=== PATIENT | female | born 1960 | race Caucasian/White ===

== ENCOUNTER → 2023-07-31 | Outpatient (CLI) | payer BC ==
[2023-07-31 10:57] LABS: African American GFR (CKD) >90 (>60 ml/min/1.73 sqM); Blood Urea Nitrogen 9 mg/dL (7-17); Non-African American GFR(CKD) >90 (>60 ml/min/1.73 sqM)
--- NOTE | 2023-07-31 14:30 | CT ---
EXAMINATION TYPE: CT abdomen pelvis w con DATE OF EXAM: 07/31/2023 COMPARISON: None HISTORY: incisional hernia. generalized abd pain. CT DLP: 1943.7 mGycm Automated exposure control for dose reduction was used. TECHNIQUE: Helical acquisition of images was performed from the lung bases through the pelvis. CONTRAST: Performed with Oral Contrast and with IV Contrast, patient injected with 100ml mL of Isovue 300. FINDINGS: The lung bases are clear. There is surgical absence of the gallbladder. There is no biliary ductal dilatation. There is no focal mass or organomegaly involving the liver, pancreas, spleen or adrenal glands. There is no solid renal mass or hydronephrosis and there is homogeneous contrast enhancement of the r enal parenchyma. The caliber the abdominal aorta is normal is no retroperitoneal adenopathy or hemorr [place]. The bowel loops are normal in caliber and there is no evidence of dilatation or obstruction. No infla mmatory changes are identified in the bowel wall or mesentery. There is no free intraperitoneal air or fluid. No pelvic mass, free fluid, abscess or adenopathy. There are postoperative changes in the anterior abdominal wall there is a small incisional hernia con taining only fat measuring approximately 17 mm IMPRESSION: 1.Small anterior midline incisional hernia containing only fat as described above 2.. Cholecystectomy
== END | disposition home or self-care (01) ==
LOC: RADCTMAIN 10:02
PROVIDERS: ATTEND Surgery
DX: K43.2 Incisional hernia without obstruction or gangrene (principal); Z90.49 Acquired absence of other specified parts of digestive tract
CPT/HCPCS: 82565; 84520; 74177; 36415; Q9967